=== PATIENT | female | born 1985 | race Caucasian/White ===

== ENCOUNTER 2016-02-14 10:47 | Emergency (ER) | payer BC ==
[2016-02-14 11:30] VITALS: RESP 18; TEMP 99.1
--- NOTE | 2016-02-14 12:11 | UCPHY ---
[id number] high of 100.4f. lower abd intermittent pain - states has vaginal bleeding after intercourse and has been seen by obgyn, has US scheduled this monday. states here due to st and fever. +fatigue, +roland Time Seen by Provider: 02/14/16 12:09 HPI/ROS: CHIEF COMPLAINT: Sore throat and fever HISTORY OF PRESENT ILLNESS: This is a healthy 30-year-old female with over 24 hours of sore throat, fever and chills. She also notes headache, diffuse myalgias, decreased oral intake. She has been in bed since this illness began. She has been taking ibuprofen 400 mg every 4 hours. She denies earache, cough, vomiting, diarrhea, or dysuria. She has had flu vaccination. She does also report lower abdominal pain. She has been experiencing some lower abdominal pain and bleeding after intercourse and is undergoing an evaluation of this with her senior analytic consultant. She is scheduled for an ultrasound in 5 days. She does not think that the abdominal pain is related to this recent illness. No recent change in her abdominal pain. No vomiting or diarrhea. REVIEW OF SYSTEMS: A ten point review of systems was performed and is negative with the exception of the items mentioned in the HPI. Source: Patient Exam Limitations: No limitations - Personal History LMP (Females 10-55): Over 28 Days Ago - Medical/Surgical History Hx Asthma: No Hx Chronic Respiratory Disease: No Hx Diabetes: No Hx Cardiac Disease: No Hx Renal Disease: No Hx Cirrhosis: No Hx Alcoholism: No Hx HIV/AIDS: No Hx Splenectomy or Spleen Trauma: No Other PMH: spinal surgery. Maternal hx of cardiomyopathy and "bulge" in L ventricle - Family History Significant Family History: No pertinent family hx - Social History Smoking Status: Never smoked Additional Social History: She works in [employer]. Social alcohol. No tobacco use. She lives alone. - Physical Exam Exam: General Appearance: Alert. Vital signs reviewed. Heart rate 108, afebrile. Eyes: Pupils equal and round, no conjunctival injection, no discharge. Anicteric. ENT, Mouth: Mucous membranes are slightly dry. Bilaterally enlarged tonsils with erythema and exudate. Neck: Tender anterior and posterior cervical lymphadenopathy, supple. No meningeal signs. Respiratory: Lungs are clear to auscultation; no wheezes, rales, or rhonchi. Cardiovascular: Regular rate and rhythm; no murmur, rub, or gallop. Gastrointestinal: Abdomen is soft and nontender, no masses or organomegaly, bowel sounds normal. Skin: Warm and dry, no rashes on exposed skin, normal color. Back: Nontender to palpation over the thoracolumbar spine. No CVAT. Extremities: No lower extremity edema, no calf tenderness or swelling. Neurological: Alert and oriented. Moving all four extremities easily and equally. Psychiatric: Normal affect. Constitutional: Initial Vital Signs Temperature (C) 37.3 C 02/14/16 11:24 Heart Rate 108 H 02/14/16 11:24 Respiratory Rate 18 02/14/16 11:24 Blood Pressure 119/78 02/14/16 11:24 O2 Sat (%) 99 02/14/16 11:24 O2 Delivery Mode Room Air Allergies/Adverse Reactions: Sulfa (Sulfonamide Antibiotics) Allergy (Verified 02/14/16 11:24) Home Medications: Medication Instructions Recorded Control Pill 09/05/14 Hydrocodone/APAP 5/325 [Buff[place] 1 - 2 tab PO Q4 PRN #10 tab 02/14/16 5/325 (RX)] Medical Decision Making ED Course/Re-evaluation: Clinically she presents with strep pharyngitis. Her rapid strep testing is negative. However, I am recommending antibiotics. She would like Bicillin. Influenza test negative. She has been able to take PO here today. HR normalized while here (tachy on arrival). We discussed symptomatic treatments and danger signs that should prompt re-evaluation. Differential Diagnosis: I considered a differential diagnosis that includes but is not limited to viral or bacterial pharyngitis, retropharyngeal abscess, epiglottitis, upper respiratory infection, and influenza. - Data Points Medications Given: Discontinued Medications Penicillin G Procaine/Benzathine (Bicillin C-R 1.2mm Units Syr) 1,200,000 unit IM ONCE ONE PRN Reason: Protocol Stop: 02/14/16 12:22 Last Admin: 02/14/16 12:41 Dose: 1,200,000 unit Departure - Departure Disposition: Home, Routine, Self-Care Clinical Impression: Pharyngitis Qualifiers: Qualifier Code: (J02.9) Acute pharyngitis, unspecified Condition: Good Instructions: Pharyngitis (ED), Strep Throat (ED) Additional Instructions: Lots of fluids and lots of rest. Use the Buffalo as needed for pain. You can take 1-2 every 4 hours. This medication contains hydrocodone, this is an opiate. It will make you sleepy. Adult Pain & Fever Control: We recommend Acetaminophen (Tylenol) and Ibuprofen (Motrin,Advil) for pain and fever control. When fever is high or pain severe, both drugs can be used at the same time, but at different intervals. Please note the time differences. Your dose is: Acetaminophen 650mg every 4 to 6 hours Ibuprofen 400mg every 6-8 hours with food OR Note: do not take Acetaminophen with Hydrocodone (Vicodin, Lortab) or Oycodone (Percocet). These medications also contain Acetaminophen. No more than 3000mg of Acetaminophen should be taken in 24 hours (for an adult). If you do take Tylenol at the same time that you are using the [place] you must keep track of how much Tylenol you take so that you do not exceed 3000 mg in a 24 hour time period. If you are having difficulty staying hydrated, if you develop vomiting, if you are getting worse in any way you will need to be re-evaluated. Referrals: Marlene Wood MD [Primary Care Provider] - As per Instructions Prescriptions: Hydrocodone/APAP 5/325 [Buff[place] 5/325 (RX)] 1 - 2 tab PO Q4 PRN #10 tab PRN Reason: pain - PQRS PQRS Measurement: Does not apply.
[2016-02-14] MEDS ORDERED: BICILLIN C-R 1200000 UNIT/2 ML SYRINGE IM ONE (12:21)
[2016-02-14] MEDS ORDERED: BICILLIN L-A 1200000 UNIT/2 ML SYRINGE IM ONE (12:34)
[2016-02-14 18:13] VITALS: BP 115/62; PULSE 74; O2SAT 96
== END 2016-02-14 13:00 | disposition home or self-care (01) ==
LOC: CED 10:47
DX: J02.9 Acute pharyngitis, unspecified (principal); R50.9 Fever, unspecified; R51 Headache; M79.1 Myalgia; R10.9 Unspecified abdominal pain; N93.0 Postcoital and contact bleeding
CPT/HCPCS: 87400-PO; 87880-PO; 96372-PO; 99214-PO; G0463-PO; J0561

== ENCOUNTER → 2017-11-04 | Outpatient (CLI) | payer BC | LOC: FIMAGING 12:56 | PROVIDERS: ATTEND Family Medicine | DX: S99.911A Unspecified injury of right ankle, initial encounter (principal) ==